=== PATIENT | female | born 1940 | race Caucasian/White ===

== ENCOUNTER → 2017-02-26 | Outpatient (CLI) | payer MEDICARE ==
--- NOTE | 2017-02-26 14:42 | RAD ---
RIGHT BREAST SONOGRAPHY Clinical indications: Further evaluation of new nodule seen on mammogram performed at [facility]. Based on report, there is a nodule at the 12:00 position of the right breast. Some of the mammographic images were sent from the prior facility. Findings: High-resolution sonography of the 12:00 position of the right breast was performed. At the 12:00 position 3 cm from the nipple, a hypoechoic nodule is seen measuring 7 mm transversely and 5 mm in thickness and 10 mm longitudinally. An echogenic pseudocapsule is seen. There are horizontal echogenic lines within it. The border is smooth with less than 3 lobulations. No internal color flow is seen within it. There is some mild sound through transmission. Findings fulfill sonographic criteria for a fibroadenoma. In retrospect, this nodule could be seen on previous mammograms dated back to 2013 and has not changed significantly. It is better visualized on the more recent mammogram most likely due to 3-D imaging. Therefore, recommend a 6 month follow-up mammogram and ultrasound of the right breast to ensure stability. 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 Recommend six-month follow-up sonogram and 2-D mammogram of the right breast to ensure stability. BI-RADS Category 3 probable benign finding. The patient information was entered into the data reminder system with a target due date for the next mammogram of August 23, 2016.
== END | disposition home or self-care (01) ==
LOC: US 13:49
PROVIDERS: ATTEND Family Medicine
DX: N63.10 Unspecified lump in the right breast, unspecified quadrant (principal)
CPT/HCPCS: 76641

== ENCOUNTER → 2019-10-27 | Outpatient (CLI) | payer MEDICARE ==
[~2019-10-27] MED LIST: AMLO-186 PO; BIOT25006 PO; CALC500T30 PO; CETI10TA74 PO; FAMO-63 PO; FLUT1DIS IH; FLUT9.9S NS; MAGN400C PO; MELO15TA6 PO; MONT10TA80 PO; NEBI5TAB2 PO; OMEG-152 PO; PRAV20TA2 PO; VALS160T3 PO; ZINC50TA39 PO
== END ==
LOC: LAB 09:15
PROVIDERS: ATTEND Registered Nurse
DX: Z11.59 Encounter for screening for other viral diseases (principal)
CPT/HCPCS: U0003-CS

== ENCOUNTER → 2019-10-31 | Day surgery (SDC) | payer MEDICARE ==
[~2019-10-31] MED LIST changes: -AMLO-186 PO; +AMLO5TAB10 PO; +CETI10TA24 PO; -CETI10TA74 PO; +IPRATRPIUM/ALBUTEROL 0.5/2.5MG 3 ML NEBU. NEB PRN; +IV RINGERS SOLUTION,LACTATED 1,000 ML IV SCH; +PROPOFOL 10,000 MCG/ML (20ML) VIAL IV ONE
[2019-10-31 08:15] VITALS: BP 118/63
--- NOTE | 2019-11-01 17:06 | PATHOLOGY ---
[facility] Accession Number: [id number] . 01 Material submitted: . stomach - GASTRIC BIOPSY . 02 Diagnosis: Gastric biopsies: - Chronic gastritis, mild. ([facility] 11/01/2019) [facility] 11/01/2019 0920 Local . 02 Comment: Sections of the gastric biopsy reveal segments of gastric antral mucosa showing congestion and mild chronic inflammation with a few admixed eosinophils primarily within the base of the mucosa. A properly controlled immunoperoxidase stain for Helicobacter is negative for Helicobacter organisms. There is no evidence of malignancy. ([facility] 11/01/2019) . Special stain performed: Immunoperoxidase for Helicobacter on A1 . 02 Electronically signed: . Justice Willis MD, Pathologist NPI- [id number] . 01 Gross description: . The specimen is received in formalin, labeled "Hamon, Wanda, gastric BX rule out H. pylori" and consists of 2 fragments of suarez tissue measuring 0.6 x 0.2 x 0.2 cm in aggregate which are entirely submitted in A1. ([facility]; 10/31/2019) JFQ/[id number] 10/31/2019 1735 Local . 02 Pathologist provided ICD-10: K29.50 . 02 CPT . 386774, [id number] Specimen Comment: A courtesy copy of this report has been sent to [phone], [phone] Specimen Comment: [id number] Specimen Comment: Report sent to / DR WEBER Performed at: 01 [facility] [address], [place], [place] [id number] MD Francisco Huffman MD Phone: [phone] Performed at: 02 [facility] [address], [place] [id number] MD Justice Willis MD Phone: [phone]
== END | disposition home or self-care (01) ==
LOC: SURG 06:25
PROVIDERS: ATTEND Emergency Medicine
DX: K21.9 Gastro-esophageal reflux disease without esophagitis (principal); K29.50 Unspecified chronic gastritis without bleeding; K44.9 Diaphragmatic hernia without obstruction or gangrene; Z88.8 Allergy status to other drugs, medicaments and biological substances; Z79.899 Other long term (current) drug therapy
CPT/HCPCS: 43239; 43450; J2704; J7120; 88305; 88342

== ENCOUNTER → 2020-03-13 | Outpatient (CLI) | payer MEDICARE ==
[2019-10-31 08:15] VITALS: BP 118/63
[~2020-03-13] MED LIST changes: +AMLO-186 PO; -AMLO5TAB10 PO; -CETI10TA24 PO; +CETI10TA74 PO; -IPRATRPIUM/ALBUTEROL 0.5/2.5MG 3 ML NEBU. NEB PRN; -IV RINGERS SOLUTION,LACTATED 1,000 ML IV SCH; -PROPOFOL 10,000 MCG/ML (20ML) VIAL IV ONE
--- NOTE | 2020-03-13 15:39 | RAD ---
EXAM: Bilateral digital screening mammogram with tomosynthesis. HISTORY: 79-year-old female presents for screening mammography. TECHNIQUE: Full-field digital craniocaudal and mediolateral oblique 2D and 3D tomosynthesis images of both breasts are obtained for evaluation. Computer aided detection was applied. COMPARISON: 02/26/2017 BREAST PARENCHYMAL DENSITY: Level B - Scattered fibroglandular densities. FINDINGS: There is no new suspicious mass, microcalcification or region of architectural distortion. There is stable nodularity within the central right breast compared to multiple studies, likely corresponding with a benign complicated cystic or fibrocystic lesion demonstrated on prior sonograms. IMPRESSION: BI-RADS Category 2: Benign finding(s). RECOMMENDATION: Annual mammography is recommended. If your mammogram demonstrates that you have dense breast tissue, which could hide abnormalities, and if you have other risk factors for breast cancer that have been identified, you might benefit from supplemental screening tests that may be suggested by your ordering physician. Dense breast tissue, in and of itself, is a relatively common condition. This information is not provided to cause undue concern, but rather to raise your awareness and to promote discussion with your physician regarding the presence of other risk factors, in addition to dense breast tissue. A report of your mammography results will be sent to you and your physician. You should contact your physician if you have any questions or concerns regarding this report. Mammography is a sensitive method for finding small breast cancers, but it does not detect them all and is not a substitute for careful clinical examination. A negative mammogram does not negate a clinically suspicious finding and should not result in delay in biopsying a clinically suspicious abnormality. PQRS compliance statement - Patient information was entered into a reminder system with a target due date for the next mammogram. "Our facility is accredited by the [employer] Mammography Program." Electronically signed by: Susan Shelby MD (03/13/2020 3:37 PM) [id number]
== END ==
LOC: MAMMO 13:55
PROVIDERS: ATTEND Physician Assistant
DX: Z12.31 Encounter for screening mammogram for malignant neoplasm of breast (principal); N64.89 Other specified disorders of breast
CPT/HCPCS: 77063; 77067

== ENCOUNTER → 2020-03-28 | Outpatient (CLI) | payer MEDICARE ==
[2019-10-31 08:15] VITALS: BP 118/63
--- NOTE | 2020-03-28 15:19 | RAD ---
INDICATION: Osteoporosis screening. Postmenopausal screening COMPARISON: None. TECHNIQUE: Bone densitometry was performed through the lumbar spine and proximal femur. FINDINGS: Lumbar Spine: BMD: 1.18 T-Score: 0 Scoliotic curvature the spine with degenerative changes. Proximal Femur: BMD: 0.75 T-Score: -1.7 IMPRESSION: 1. Lumbar spine falls within the normal range. 2. Proximal femur falls within the osteopenic range. Electronically signed by: Anil Weber MD (03/28/2020 3:15 PM) [id number]
== END ==
LOC: DXRAD 13:42
PROVIDERS: ATTEND Physician Assistant
DX: Z13.820 Encounter for screening for osteoporosis (principal); M85.80 Other specified disorders of bone density and structure, unspecified site; Z78.0 Asymptomatic menopausal state
CPT/HCPCS: 77080

== ENCOUNTER → 2021-06-12 | Outpatient (CLI) | payer MEDICARE ==
[2019-10-31 08:15] VITALS: BP 118/63
--- NOTE | 2021-06-12 15:13 | RAD ---
Bilateral digital screening 2-D and 3-D (digital breast tomosynthesis) mammogram: Reason for examination: Routine screening. Comparison: Mammograms from 03/13/2020 and 03/08/2019. Right breast ultrasound from 03/08/2019. Interpretation was made with the benefit of CAD. FINDINGS: Breast density: Category B. There are scattered areas of fibroglandular density. No new suspicious breast mass, malignant appearing calcifications, or architectural distortion is see n. There is an unchanged oval circumscribed 1 cm mass in the 12:00 region of the right breast which i s been previously evaluated by ultrasound and likely represents a fibroadenoma. IMPRESSION: No evidence of malignancy. Assessment: BI-RADS 2. Benign finding. Recommendation: Routine screening mammograms. The patient will receive a letter with the results in the mail. Patient information will be entered i nto the mammography reminder system with a target recall date for the next mammogram. A reminder cam er will be generated. Electronically signed by: Tosha Zamarripa MD (06/12/2021 3:11 PM) [id number]
== END ==
LOC: MAMMO 13:56
PROVIDERS: ATTEND Physician Assistant
DX: Z12.31 Encounter for screening mammogram for malignant neoplasm of breast (principal)
CPT/HCPCS: 77063; 77067